=== PATIENT | male | born 1965 | race Caucasian/White ===

== ENCOUNTER 2019-08-19 10:55 | Emergency (ER) | payer OTHER ==
[~2019-08-19] VITALS: Ht 185.4 cm; Wt 143.8 kg
[2019-08-19] MEDS ORDERED: LISINOPRIL20 MG PO (11:07)
[2019-08-19] MEDS ORDERED: ATENOLOL25 MG PO (11:08)
--- NOTE | 2019-08-21 11:06 | EKG ---
[facility] [address] [facility] [place] [address] Signed Atrial fibrillation with rapid ventricular response Minimal voltage criteria for LVH, may be normal variant Cannot rule out Anteroseptal infarct , age undetermined Abnormal ECG No previous ECGs available Confirmed by CHAPARRITA BROOKS MD ([id number]) on 08/21/2019 11:06:04 AM Electronically Signed By: CHAPARRITA BROOKS MD 08/21/19 1106 PATIENT NAME: JORGE DELGADO HELENA Electrocardiogram DATE OF : 61 PHYSICIAN: CHAPARRITA BROOKS MD REPORT #: [id number] REPORT IS CONFIDENTIAL AND NOT TO BE RELEASED WITHOUT AUTHORIZATION
== END 2019-08-19 14:34 | disposition short-term general hospital (02) ==
LOC: ED 10:55
DX: I26.92 Saddle embolus of pulmonary artery without acute cor pulmonale (principal); R09.02 Hypoxemia; I10 Essential (primary) hypertension; J45.909 Unspecified asthma, uncomplicated; Z79.899 Other long term (current) drug therapy
CPT/HCPCS: 71045; 71260; 80053; 83880; 84484; 85025; 85379; 93005; 93010; 99285-25; J1170; J1644; Q9967